=== PATIENT | male | born 1930 | race Caucasian/White ===

== ENCOUNTER 2018-06-21 22:54 | Inpatient (IN) | payer BC ==
[2018-06-21 23:18] LABS: ADD MAN DIFF? NO
[2018-06-21 23:21] LABS: WHITE BLOOD COUNT 10.5 10^3/ul (4.8-10.8)
[2018-06-21 23:21] LABS: ABNORMAL IP MESSAGE 1; BASOPHILS % 0.4 % (0.0-2.0); EOSINOPHILS # 0.1 10^3/ul (0.0-0.5); EOSINOPHILS % 1.1 % (0.0-7.0); HEMATOCRIT 25.8 % (42.0-52.0); HEMOGLOBIN 8.3 g/dl (14.0-18.0); LYMPHOCYTES # 1.6 10^3/ul (0.8-2.9); LYMPHOCYTES % 15.7 % (15.0-51.0); MEAN CORPUSCULAR HEMOGLOBIN 30.2 pg (29.0-33.0); MEAN CORPUSCULAR HGB CONC 32.2 g/dl (32.0-37.0); MEAN CORPUSCULAR VOLUME 93.8 fl (82.0-101.0); MEAN PLATELET VOLUME 9.2 fl (7.4-10.4); MONOCYTES % 9.6 % (0.0-11.0); NEUTROPHIL # 6.9 10^3/ul (1.6-7.5); NEUTROPHILS % 65.8 % (39.0-77.0); NUCLEATED RED BLOOD CELLS # 0.1 10^3/ul (0.0-0.0); NUCLEATED RED BLOOD CELLS% 0.5 /100WBC (0.0-0.0); PLATELET COUNT 198 10^3/UL (140-415); POSITIVE DIFF @See below; RED BLOOD COUNT 2.75 10^6/ul (4.70-6.10); RED CELL DISTRIBUTION WIDTH 13.7 % (11.5-14.5)
[2018-06-21 23:53] LABS: ALANINE AMINOTRANSFERASE 145 IU/L (13-69); ALBUMIN 3.4 g/dl (3.3-4.9); ALBUMIN/GLOBULIN RATIO 0.94; ALKALINE PHOSPHATASE 365 IU/L (42-121); ANION GAP 12 (5-13); ASPARTATE AMINO TRANSFERASE 185 IU/L (15-46); BILIRUBIN,INDIRECT 0.3 mg/dl (0-1.1); BILIRUBIN,TOTAL 0.3 mg/dl (0.2-1.3); BLOOD UREA NITROGEN 111 mg/dl (7-20); CARBON DIOXIDE 30 mmol/L (21-31); CHLORIDE 100 mmol/L (97-110); CREATININE 3.77 mg/dl (0.61-1.24); GLUCOSE 132 mg/dl (70-220); LIPASE 201 U/L (23-300); POTASSIUM 5.5 mmol/L (3.5-5.1); SODIUM 142 mmol/L (135-144)
[2018-06-21] MEDS: ONDANSETRON 4 MG INJ IV (23:56)
[2018-06-21] MEDS: CEFEPIME 1GM/50 ML (PMX) 50 ML IVPB (23:56)
[2018-06-21] MEDS: SODIUM CHLORIDE 0.9% 1L BAG IV* (23:57)
[2018-06-21] MEDS: SOD CHLORIDE 0.9% 1,000 ML IV (23:57)
[2018-06-22 00:01] LABS: ANISOCYTOSIS 1+ (0-0); BAND NEUTROPHILS #M 0.4 10^3/ul (0.0-0.6); BAND NEUTROPHILS % (M) 4 % (0-4); BASOPHIL #M 0.1 10^3/ul (0.0-0.0); BASOPHILS % (M) 1 % (0-2); EOSINOPHILS % (M) 3 % (0-7); GIANT THROMBO% (M) 1 % (0-0); LYMPHOCYTES #M 2.9 10^3/ul (0.8-2.9); LYMPHOCYTES % (M) 28 % (15-51); METAMYELOCYTES #M 0.1 10^3/ul (0.0-0.0); METAMYELOCYTES %M 1 % (0-0); MICROCYTOSIS 1+ (0-0); MONOCYTE #M 0.7 10^3/ul (0.3-0.9); MONOCYTES % (M) 7 % (0-11); MYELOCYTES #M 0.3 10^3/ul (0.0-0.0); MYELOCYTES % (M) 3 % (0-0); PLATELET ESTIMATE NORMAL; POLYCHROMASIA 1+ (0-0); SEG NEUT #M 5.6 10^3/ul (1.6-7.5); SEGMENTED NEUTROPHILS (M) % 53 % (39-77); SMUDGE%M 5 % (0-0)
[2018-06-22 00:05] LABS: TROPONIN-I 0.095 ng/ml (0.000-0.120)
[2018-06-22] MEDS: ALBUTEROL 0.083% (NEB) 2.5 MG/3 ML AMP HHN (00:46)
[2018-06-22 00:56] LABS: ADD UMIC YES; UR ASCORBIC ACID 40 mg/dL (NEGATIVE); UR BACTERIA MANY /HPF (NONE SEEN); UR BILIRUBIN (Dip) NEGATIVE (NEGATIVE); UR BLOOD (Dip) 3+ mg/dL (NEGATIVE); UR CLARITY CLOUDY (CLEAR); UR COLOR AMBER (YELLOW); UR GLUCOSE (Dip) NEGATIVE (NEGATIVE); UR KETONES (Dip) NEGATIVE (NEGATIVE); UR LEUKOCYTE ESTERASE (Dip) 3+ Leu/ul (NEGATIVE); UR MUCUS FEW /HPF (NONE SEEN); UR NITRITE (Dip) NEGATIVE (NEGATIVE); UR RBC > 182 /HPF (0-5); UR SPECIFIC GRAVITY (Dip) 1.011 (1.003-1.030); UR TOTAL PROTEIN (Dip) 2+ mg/dl (NEGATIVE); UR UROBILINOGEN (Dip) NEGATIVE (NEGATIVE); UR WBC > 182 /HPF (0-5)
[2018-06-22] MEDS ORDERED: PIPER-TAZO 3.375 GM IV (PMX) 100 ML IVPB ×2 (06:00)
[2018-06-22] MEDS: PIPER-TAZO 2.25 GM (PMX) 50 ML IVPB ×3 (06:31→22:07)
[2018-06-22] MEDS ORDERED: BISACODYL (EC) 5 MG TAB PO (08:00)
[2018-06-22] MEDS ORDERED: LACTULOSE 30ML CUP PO (08:00)
[2018-06-22] MEDS ORDERED: ACETAMINOPHEN 325 MG TAB PO (08:00)
[2018-06-22] MEDS ORDERED: MAGNESIUM HYDROXIDE 30ML CUP PO (08:00)
[2018-06-22] MEDS ORDERED: MAGNESIUM HYDROXIDE 30ML CUP GTB (08:16)
[2018-06-22] MEDS ORDERED: LACTULOSE 30ML CUP GTB (08:16)
[2018-06-22] MEDS: METOPROLOL (XL) 25 MG TAB PO (09:00)
[2018-06-22] MEDS: MIDODRINE 2.5 MG TAB GTB ×3 (09:00→18:00)
[2018-06-22] MEDS: FUROSEMIDE 20 MG TAB GTB (09:52)
[2018-06-22] MEDS: MAGNESIUM OXIDE 400 MG TAB GTB ×2 (09:52→22:08)
[2018-06-22] MEDS: DONEPEZIL 5 MG TAB GTB (09:52)
[2018-06-22] MEDS: FINASTERIDE 5 MG TAB GTB (09:52)
[2018-06-22] MEDS: ASPIRIN 81 MG TAB GTB (09:52)
[2018-06-22] MEDS: FOLIC ACID 1 MG TAB GTB (09:53)
[2018-06-22] MEDS ORDERED: QUETIAPINE 25 MG TAB PO (10:30)
[2018-06-22] MEDS: SOD CHLORIDE 0.9% 1,000 ML IV ×2 (10:44→22:57)
[2018-06-22] MEDS: TAMSULOSIN (SR) 0.4 MG CAP PO ×2 (10:44→22:07)
[2018-06-22] MEDS: MENTHOL/METH SALICYLATE 30 GM OINT TOP ×2 (12:34→22:09)
[2018-06-22] MEDS: NA BICARBONATE 650 MG TAB PO ×2 (12:36→22:07)
[2018-06-22 15:26] LABS: SODIUM,URINE RANDOM 69 mmol/L (30-90)
[2018-06-22 15:26] LABS: CREATININE,URINE RANDOM 27.34 mg/dl (20-370)
[2018-06-22 16:25] LABS: ANION GAP 7 (5-13); BLOOD UREA NITROGEN 107 mg/dl (7-20); CALCIUM 11.1 mg/dl (8.4-10.2); CARBON DIOXIDE 30 mmol/L (21-31); CHLORIDE 109 mmol/L (97-110); CREATININE 3.21 mg/dl (0.61-1.24); GLUCOSE 139 mg/dl (70-220); SODIUM 146 mmol/L (135-144)
[2018-06-22] MEDS ORDERED: ATORVASTATIN 20 MG TAB GTB (21:00)
[2018-06-22] MEDS: QUETIAPINE 100 MG TAB PO (22:07)
[2018-06-22] MEDS: BALSAM PERU/CASTOR OIL 60 GM TUBE TOP (22:08)
[2018-06-22] MEDS: METOPROLOL 25 MG TAB GTB (22:08)
[2018-06-22] MEDS: ACETAMINOPHEN 325 MG TAB GTB (22:11)
[2018-06-22] MEDS: VANCOMYCIN 1 GM (PMX) 250 ML IVPB (22:57)
[2018-06-22] MEDS: SOD CHLORIDE 0.9% 250 ML IV (22:58)
[2018-06-23] MEDS: PIPER-TAZO 2.25 GM (PMX) 50 ML IVPB ×3 (05:58→22:13)
[2018-06-23] MEDS: MIDODRINE 2.5 MG TAB GTB ×3 (05:59→18:00)
[2018-06-23 06:03] LABS: PHOSPHORUS 5.9 mg/dl (2.5-4.9)
[2018-06-23 06:06] LABS: ANION GAP 9 (5-13); BLOOD UREA NITROGEN 102 mg/dl (7-20); CALCIUM 10.7 mg/dl (8.4-10.2); CARBON DIOXIDE 28 mmol/L (21-31); CHLORIDE 110 mmol/L (97-110); CREATININE 3.14 mg/dl (0.61-1.24); GLUCOSE 124 mg/dl (70-220); POTASSIUM 4.7 mmol/L (3.5-5.1); SODIUM 147 mmol/L (135-144)
[2018-06-23 06:08] LABS: URIC ACID 9.6 mg/dl (3.1-7.9)
[2018-06-23 06:08] LABS: CREATINE KINASE 257 IU/L (23-200)
[2018-06-23] MEDS: SOD CHLORIDE 0.9% 1,000 ML IV ×2 (06:30→12:02)
[2018-06-23 07:29] LABS: MAGNESIUM 3.2 mg/dl (1.7-2.5)
[2018-06-23] MEDS: MAGNESIUM OXIDE 400 MG TAB GTB (09:00)
[2018-06-23] MEDS: FINASTERIDE 5 MG TAB GTB (09:21)
[2018-06-23] MEDS: NA BICARBONATE 650 MG TAB PO ×3 (09:21→22:04)
[2018-06-23] MEDS: DONEPEZIL 5 MG TAB GTB (09:22)
[2018-06-23] MEDS: TAMSULOSIN (SR) 0.4 MG CAP PO ×2 (09:22→22:04)
[2018-06-23] MEDS: METOPROLOL 25 MG TAB GTB ×3 (09:22→22:06)
[2018-06-23] MEDS: ASPIRIN 81 MG TAB GTB (09:22)
[2018-06-23] MEDS: FOLIC ACID 1 MG TAB GTB (09:22)
[2018-06-23] MEDS: MENTHOL/METH SALICYLATE 30 GM OINT TOP ×3 (09:23→22:07)
[2018-06-23] MEDS: BALSAM PERU/CASTOR OIL 60 GM TUBE TOP ×2 (09:23→22:08)
[2018-06-23] MEDS ORDERED: VANCOMYCIN IV PER PHARMACY XX (11:00)
[2018-06-23] MEDS: ACETAMINOPHEN 325 MG TAB GTB ×2 (12:28→22:21)
[2018-06-23] MEDS: QUETIAPINE 100 MG TAB PO (22:04)
[2018-06-24] MEDS: SOD CHLORIDE 0.9% 1,000 ML IV ×3 (03:52→22:30)
[2018-06-24] MEDS: PIPER-TAZO 2.25 GM (PMX) 50 ML IVPB (05:55)
[2018-06-24] MEDS: MIDODRINE 2.5 MG TAB GTB ×3 (05:59→17:53)
[2018-06-24 06:24] LABS: ANION GAP 5 (5-13); BLOOD UREA NITROGEN 95 mg/dl (7-20); CALCIUM 10.3 mg/dl (8.4-10.2); CARBON DIOXIDE 29 mmol/L (21-31); CHLORIDE 115 mmol/L (97-110); CREATININE 2.89 mg/dl (0.61-1.24); GLUCOSE 132 mg/dl (70-220); POTASSIUM 4.3 mmol/L (3.5-5.1); SODIUM 149 mmol/L (135-144)
[2018-06-24 06:35] LABS: VANCOMYCIN,RANDOM 8.1 ug/ml
[2018-06-24] MEDS: VANCOMYCIN 1 GM 250 ML IVPB (08:08)
[2018-06-24] MEDS: NA BICARBONATE 650 MG TAB PO ×3 (08:09→22:13)
[2018-06-24] MEDS: ACETAMINOPHEN 325 MG TAB GTB ×2 (08:09→22:12)
[2018-06-24] MEDS: FOLIC ACID 1 MG TAB GTB (08:09)
[2018-06-24] MEDS: DONEPEZIL 5 MG TAB GTB (08:09)
[2018-06-24] MEDS: TAMSULOSIN (SR) 0.4 MG CAP PO ×2 (08:09→22:12)
[2018-06-24] MEDS: ASPIRIN 81 MG TAB GTB (08:09)
[2018-06-24] MEDS: METOPROLOL 25 MG TAB GTB ×2 (08:10→22:12)
[2018-06-24] MEDS: FINASTERIDE 5 MG TAB GTB (08:47)
[2018-06-24] MEDS: BALSAM PERU/CASTOR OIL 60 GM TUBE TOP ×2 (09:00→22:13)
[2018-06-24] MEDS: MENTHOL/METH SALICYLATE 30 GM OINT TOP ×3 (09:00→22:13)
[2018-06-24] MEDS: LEVOFLOXACIN 250MG/D5W (PMX) 50 ML IVPB (12:21)
[2018-06-24 18:51] LABS: PTH CALCIUM 9.7 mg/dL (8.6-10.3)
[2018-06-24] MEDS: QUETIAPINE 100 MG TAB PO (22:12)
[2018-06-25] MEDS: SOD CHLORIDE 0.9% 1,000 ML IV ×2 (04:12→15:54)
[2018-06-25] MEDS: MIDODRINE 2.5 MG TAB GTB ×3 (05:50→17:39)
[2018-06-25 06:29] LABS: ANION GAP 9 (5-13); BLOOD UREA NITROGEN 83 mg/dl (7-20); CALCIUM 10.1 mg/dl (8.4-10.2); CARBON DIOXIDE 27 mmol/L (21-31); CHLORIDE 115 mmol/L (97-110); CREATININE 2.18 mg/dl (0.61-1.24); GLUCOSE 126 mg/dl (70-220); POTASSIUM 3.7 mmol/L (3.5-5.1); SODIUM 151 mmol/L (135-144)
[2018-06-25 08:01] LABS: PTH INTACT 4 pg/mL (14-64)
[2018-06-25] MEDS: NA BICARBONATE 650 MG TAB PO ×3 (08:32→21:02)
[2018-06-25] MEDS: TAMSULOSIN (SR) 0.4 MG CAP PO ×2 (08:32→21:02)
[2018-06-25] MEDS: METOPROLOL 25 MG TAB GTB ×2 (08:33→21:02)
[2018-06-25] MEDS: FOLIC ACID 1 MG TAB GTB (08:33)
[2018-06-25] MEDS: ASPIRIN 81 MG TAB GTB (08:33)
[2018-06-25] MEDS: FINASTERIDE 5 MG TAB GTB (08:33)
[2018-06-25] MEDS: BALSAM PERU/CASTOR OIL 60 GM TUBE TOP ×2 (08:33→21:03)
[2018-06-25] MEDS: DONEPEZIL 5 MG TAB GTB (08:33)
[2018-06-25] MEDS: MENTHOL/METH SALICYLATE 30 GM OINT TOP ×3 (08:34→21:03)
[2018-06-25] MEDS: DOXYCYCLINE 100 MG in SOD CHLORIDE 0.9% 250 ML IVPB ×2 (11:29→21:58)
[2018-06-25] MEDS: ALLOPURINOL 100 MG TAB GTB (12:20)
[2018-06-25] MEDS: SEVELAMER CARBONATE 0.8 GM PKT GTB ×2 (12:20→17:39)
[2018-06-25] MEDS: PIPER-TAZO 2.25 GM (PMX) 50 ML IVPB ×2 (13:38→23:10)
[2018-06-25] MEDS: QUETIAPINE 100 MG TAB PO (21:02)
[2018-06-26] MEDS: SOD CHLORIDE 0.9% 1,000 ML IV (03:21)
[2018-06-26] MEDS: PIPER-TAZO 2.25 GM (PMX) 50 ML IVPB ×3 (05:07→22:38)
[2018-06-26] MEDS: MIDODRINE 2.5 MG TAB GTB ×3 (06:00→18:18)
[2018-06-26] MEDS: SEVELAMER CARBONATE 0.8 GM PKT GTB (08:36)
[2018-06-26] MEDS: NA BICARBONATE 650 MG TAB PO (08:37)
[2018-06-26] MEDS: FINASTERIDE 5 MG TAB GTB (08:37)
[2018-06-26] MEDS: TAMSULOSIN (SR) 0.4 MG CAP PO ×2 (08:37→21:39)
[2018-06-26] MEDS: ALLOPURINOL 100 MG TAB GTB (08:38)
[2018-06-26] MEDS: DONEPEZIL 5 MG TAB GTB (08:38)
[2018-06-26] MEDS: FOLIC ACID 1 MG TAB GTB (08:38)
[2018-06-26] MEDS: METOPROLOL 25 MG TAB GTB ×2 (08:39→21:39)
[2018-06-26] MEDS: ACETAMINOPHEN 325 MG TAB GTB (08:39)
[2018-06-26] MEDS: ASPIRIN 81 MG TAB GTB (08:39)
[2018-06-26] MEDS: DOXYCYCLINE 100 MG in SOD CHLORIDE 0.9% 250 ML IVPB ×2 (08:40→21:38)
[2018-06-26] MEDS: BALSAM PERU/CASTOR OIL 60 GM TUBE TOP ×2 (08:40→22:02)
[2018-06-26] MEDS: MENTHOL/METH SALICYLATE 30 GM OINT TOP ×3 (08:40→22:02)
[2018-06-26] MEDS: GUAIFENESIN/DM 5ML CUP GTB (23:35)
[2018-06-27] MEDS: FUROSEMIDE 20 MG INJ IV (01:17)
[2018-06-27] MEDS: MIDODRINE 2.5 MG TAB GTB ×2 (06:00→12:00)
[2018-06-27] MEDS: PIPER-TAZO 2.25 GM (PMX) 50 ML IVPB ×2 (06:28→13:47)
[2018-06-27] MEDS: TAMSULOSIN (SR) 0.4 MG CAP PO (09:52)
[2018-06-27] MEDS: METOPROLOL 25 MG TAB GTB (09:53)
[2018-06-27] MEDS: ALLOPURINOL 100 MG TAB GTB (09:53)
[2018-06-27] MEDS: DOXYCYCLINE 100 MG in SOD CHLORIDE 0.9% 250 ML IVPB (09:54)
[2018-06-27] MEDS: MENTHOL/METH SALICYLATE 30 GM OINT TOP ×2 (10:00→13:47)
[2018-06-27] MEDS: BALSAM PERU/CASTOR OIL 60 GM TUBE TOP (10:00)
[2018-06-27] MEDS ORDERED: DOXYCYCLINE 100 MG TAB PO (21:00)
== END 2018-06-27 16:30 | disposition hospice, home (50) | DRG 871 ==
LOC: E/R 22:54 → PP2 06-22 01:40 → E/R 06-22 02:15 → TEL 06-22 00:34 → PP2 06-22 03:58
DX: A41.9 Sepsis, unspecified organism (principal); G93.41 Metabolic encephalopathy; N13.6 Pyonephrosis; N17.9 Acute kidney failure, unspecified; E86.0 Dehydration; E87.5 Hyperkalemia; Z93.1 Gastrostomy status; E83.52 Hypercalcemia; E83.39 Other disorders of phosphorus metabolism; D64.9 Anemia, unspecified; I12.9 Hypertensive chronic kidney disease with stage 1 through stage 4 chronic kidney disease, or unspecified chronic kidney disease; N18.9 Chronic kidney disease, unspecified; N40.0 Benign prostatic hyperplasia without lower urinary tract symptoms; B96.20 Unspecified Escherichia coli [E. coli] as the cause of diseases classified elsewhere; Z66 Do not resuscitate; Z87.440 Personal history of urinary (tract) infections; Z85.528 Personal history of other malignant neoplasm of kidney
CPT/HCPCS: 36415; 71045; 74176; 80048; 80053; 80202; 81001; 82550; 83690; 83735; 83970; 84100; 84155; 84300; 84484; 84560; 85025; 87040-91; 87081; 87086; 89190; 93005; 94664; 96365; 96375; 99285-25